=== PATIENT | female | born 1965 | race African-American/Black ===

== ENCOUNTER 2016-09-26 16:14 | Emergency (ER) | payer OTHER ==
[~2016-09-26] VITALS: Ht 157.5 cm; Wt 69.0 kg
[~2016-09-26 16:14] MED LIST: NORCO 5-325 TA1 EACH PO; VALIUM5 MG PO
[2016-09-26] MEDS ORDERED: GUAIFEN-CODEIN120 ML PO (17:43)
[2016-09-26] MEDS ORDERED: TESSALON PERLE100 MG PO (17:43)
[2016-09-26] MEDS ORDERED: AZITHROMYCIN 2250 MG PO (17:43)
[2016-09-26 17:56] VITALS: BP 158/82
== END 2016-09-26 17:58 | disposition home or self-care (01) ==
LOC: ER 16:14
DX: J06.9 Acute upper respiratory infection, unspecified (principal)